=== PATIENT | female | born 2000 | race Caucasian/White ===

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

== ENCOUNTER → 2021-01-09 12:18 | Outpatient (CLI) | payer OTHER, SELFPAY ==
[2020-02-29 14:43] VITALS: BMI 19.1
[2021-01-09 14:54] LABS: Absolute Lymphocyte Count 0.86 X10^3/uL (0.83-4.51); Absolute Neutrophil Count 7.4 X10^3/uL (2.0-7.7); Basophil# 0.04 X10^3/uL; Basophil% 0.5 % (0-1); Eosinophil# 0.01 X10^3/uL; Eosinophils% 0.1 % (0-5); Hematocrit 40.2 % (37-47); Hemoglobin 13.6 g/dL (12.0-15.0); Lymphocyte # 0.86 X10^3/ul (0.83-4.51); Lymphocyte % 10.1 % (19-41); Mean Corp Hgb Conc 33.8 g/dL (32-36); Mean Corpuscular Hgb 29.1 pg (27.0-32.0); Mean Corpuscular Volume 85.9 fL (81-99); Mean Platelet Vol. 9.6 fl (6.2-12.0); Monocyte# 0.23 X10^3/uL; Monocyte% 2.7 % (0-10); NRBC Flagged by Analyzer 0 % (0-5); Neutrophil # 7.36 X10^3/uL (2.7-7.7); Neutrophil % 86.4 % (47-70); Platelet Count 411 K/mm3 (150-450); RBC Distribution Width CV 13.2 % (11.6-14.6); RBC Distribution Width SD 40.9 fl (35.1-43.9); Red Blood Count 4.68 M/mm3 (4.2-5.4); White Blood Count 8.5 K/mm3 (4.4-11.0)
[2021-01-09 15:11] LABS: BUN 12 mg/dL (7-18); Creatinine, Serum 0.69 mg/dL (0.55-1.02); Glucose 140 mg/dL (74-106)
[2021-01-09 15:12] LABS: ALB/GLOB Ratio 1.3 RATIO (0.9-2.4); AST(SGOT) 18 U/L (15-37); Alanine Aminotransfer ALT/SGPT 30 U/L (13-56); Albumin, Serum 4.4 g/dL (3.2-5.0); Alkaline Phosphatase 66 U/L (45-117); Anion Gap 8 (5-15); BUN/Creat Ratio 17.3 RATIO (10-20); Calcium,Total 9.4 mg/dL (8.5-10.1); Chloride 106 mmol/L (98-107); EST Glomerular Filtration Rate 116 mL/min (>60); Est Glom Filt Rate - Afr Amer 140 mL/min (>60); Globulin 3.5 g/dL (2.2-4.2); Potassium 4.2 mmol/L (3.5-5.1); Protein, Total 7.9 g/dL (6.4-8.2); Sodium Level 136 mmol/L (136-145)
[2021-01-09 15:14] LABS: hCG Titer Quant., Serum < 1 mIU/mL (1-3)
== END ==
PROVIDERS: Referring Provider Internal Medicine Rheumatology; Visit Provider Internal Medicine Rheumatology
DX: M06.4 Inflammatory polyarthropathy (principal); M79.7 Fibromyalgia; F90.9 Attention-deficit hyperactivity disorder, unspecified type; F41.9 Anxiety disorder, unspecified; R51.9 Headache, unspecified
CPT/HCPCS: 36415; 80053; 84702; 85025

== ENCOUNTER 2022-01-01 17:10 | Emergency (ER) | payer OTHER, SELFPAY ==
[2022-01-01 17:11] VITALS: BP 116/74; PULSE 83; RESP 16; TEMP 36.7; O2SAT 98
--- NOTE | 2022-01-01 17:17 | ED.RN ---
PRIOR TO CHECKING IN TO ED, PT. WAS SITTING AT BEDSIDE WITH ANOTHER PT. THAT THEY BROUGHT IN TO BE SEEN. PT. HAS BEEN AMBULATING IN HALLS AND USING CELL PHONE WHILE SITTING AT BEDSIDE OF FRIEND THAT IS BEING SEEN.
--- NOTE | 2022-01-01 17:56 | EDS_ITS ---
HPI History of Present Illness Chief Complaint: Head Injury Narrative Narrative: 21-year-old female presenting for evaluation of an injury she sustained 5 days ago. She states that she was working and was [place] of [place] with her job. She was kicked by a small horse in the head. She denies LOC. She states she initially had some blurry vision which resolved. She has not had any issues with a small lump on the back of her head. She states it does not hurt that badly. She has no dizziness, lightheadedness, nausea, vomiting. Denies neck pain. No paresthesias. She states she has been otherwise well. She is eating and drinking normally. She making normal urine and stool. She states that her boss wanted her to get checked out before she came back to work. She does not wish to file Worker's Comp. [facility] Medical History Abnormal bruising Chest pain Chronic neck and back pain Fatigue Hx of psychiatric hospitalization Knee pain Limb weakness Loss of consciousness Severe headache Shoulder pain SOB (shortness of breath) Weight loss Home Medications control PO 02/29/20 [History Last Taken Unknown] quetiapine 25 mg tablet (Seroquel) 25 mg PO DAILY 02/29/20 [History Last Taken Unknown] sertraline 25 mg tablet (Zoloft) 25 mg PO DAILY 02/29/20 [History Last Taken Unknown] Allergy/AdvReac Type Severity Reaction Status Date / Time No Known Allergies Allergy Verified 01/01/22 17:12 Family History Other Ankylosing spondylitis Arthritis Heart disease Ulcerative colitis Social History Smoking Status: Unknown if ever smoked Electronic Cigarette Use: with nicotine alcohol intake: never ROS ROS ED Constitutional Constitutional ED: Denies chills or fever(s) Eyes Eyes: Denies change in vision ENT ENT ED: Denies rhinorrhea or sore throat Cardiovascular Cardiovascular: Denies chest pain or palpitations Respiratory/Chest Respiratory/Chest: Denies cough, dyspnea or dyspnea on exertion Gastrointestinal Gastrointestinal: Denies abdominal pain or constipation Genitourinary Genitourinary ED: Denies dysuria or hematuria Musculoskeletal Musculoskeletal: Denies arthralgias or back pain Integumentary Reports other Details: Contusion to the occiput ; Denies abscess Neurologic Neurologic: Denies headache(s) or paresthesias Psychiatric Psychiatric: Denies anxiety or depression EXAM Physical Exam Const Vital Signs: 01/01/22 17:11 01/01/22 17:17 Temperature 98.1 F Temperature Source Temporal Pulse Rate 83 Respiratory Rate 16 Respiratory Effort Normal Non-Labored Respiratory Pattern Normal Blood Pressure 116/74 Blood Pressure Mean 88 Pulse Ox 98 Oxygen Delivery Method Room Air Positive well nourished General Appearance ED: NAD HEENT Reports TM's clear atraumatic; Negative for trauma or tenderness Tympanic Membrane ED: Yes TM's clear bilateral Eyes PERRL and EOMs intact bilaterally Neck full ROM General: Negative for tenderness Chest Wall inspection of chest normal and palpation of chest normal Resp normal respiratory effort and clear to auscultation bilaterally Back/Spine normal to inspection Extremity normal to inspection and full ROM Neuro oriented x3, CN's II-XII intact bilaterally, moves all extremities, no focal motor deficits, no sensory deficits noted and gait normal Sensorium / Orientation: alert Motor Exam: strength 5/5 throughout Psych mental status grossly normal and thought process normal Skin no rashes or lesions noted and no wounds MDM MDM MDM Narrative Medical decision making narrative: Patient reports that she was kicked by a small horse about 5 days ago. Initia lly she had some blurry vision which resolved. She has no residual headache or other neurologic symptoms. She does not even really have any pain. She states she has a small lump on the back of her occiput but I cannot feel this or see this. Initially when I interviewed her she was laughing, and states that she just wanted to get checked out so she can go back to work. She currently does not have any significant symptoms at all. She is well-appearing. No believe she needs any lab work or imaging. I told her she can go back to work without restrictions. Impression: 1. Closed head injury Lab Data Attestation: I reviewed the patient's lab results. Discharge Plan Triage Chief Complaint: Head Injury ED Provider: Yong Polk Dx/Rx/DC Orders Instructions: ED Head Injury (Adult) Prescriptions: No Action quetiapine [Seroquel] 25 mg tablet 25 mg PO DAILY sertraline [Zoloft] 25 mg tablet 25 mg PO DAILY control PO Primary Care Provider: Care Physician,No Primary Referrals: Care Physician,No Primary [Primary Care Provider] - Disposition Disposition: Home, Self Care
== END 2022-01-01 18:02 | disposition home or self-care (01) ==
PROVIDERS: Emergency Provider Student in an Organized Health Care Education/Training Program; Visit Provider Student in an Organized Health Care Education/Training Program
DX: S09.90XA Unspecified injury of head, initial encounter (principal); Z87.891 Personal history of nicotine dependence; W55.12XA Struck by horse, initial encounter
CPT/HCPCS: 99282